=== PATIENT | female | born 2005 | race Caucasian/White ===

== ENCOUNTER 2024-06-10 13:18 | Emergency (ER) | payer MEDICAID ==
[2024-06-10 13:37] VITALS: TEMP 98.4; O2SAT 100
[2024-06-10 13:44] LABS: HCG URINE TEST NEGATIVE (NEGATIVE)
--- NOTE | 2024-06-10 13:50 | ERPHSYRPT ---
- History of Present Illness Time Seen by Provider: 06/10/24 13:47 Source: patient Exam Limitations: no limitations Patient Subjective Stated Complaint: C/O burning with urinations X 4 days with some left sided abdominal pain that started around 0400 today. Triage Nursing Assessment: Patient ambulated back to ER without difficulties. She is alert and oriented. No SOB. Skin tone normal. DERRICK MIKE. Physician History: 18-year-old female history of UTI presents to our emergency department with similar symptoms. Patient complains of dysuria. Symptoms have been ongoing for approximately 4 days. Symptoms have gotten progressively worse. Patient now complains of left sided flank/abdominal pain. No active pain at this time. Patient declined pain medication. No trauma no fever. No nausea vomiting or diaphoresis. Symptoms are mild to moderate in intensity. No specific worsening improving factors. Patient otherwise feels well. Mother at bedside. They voiced no other complaints or concerns at this time. Portions of this note were created with voice recognition technology. There may be grammatical, spelling, punctuation or sound alike errors Timing/Duration: day(s) Severity: moderate (4 days) Modifying Factors: Improves With: nothing Associated Symptoms: denies symptoms Allergies/Adverse Reactions: No Known Drug Allergies Allergy (Verified 06/10/24 13:29) Hx Tetanus, Diphtheria Vaccination/Date Given: Yes Immunizations Up to Date: Yes Travel Risk - International Travel Have you traveled outside of the country in past 3 weeks: No - Emerging Infectious Disease Are you exhibiting symptoms associated with any current EIDs: Yes Symptoms: Abdominal Pain - Review of Systems Constitutional: No Symptoms, No Fever, No Chills Eyes: No Symptoms Ears, Nose, & Throat: No Symptoms Respiratory: No Symptoms, No Cough, No Dyspnea Cardiac: No Symptoms, No Chest Pain, No Edema, No Syncope Abdominal/Gastrointestinal: No Symptoms, No Abdominal Pain, No Nausea, No Vomiting, No Diarrhea Genitourinary Symptoms: No Symptoms, No Dysuria Musculoskeletal: No Symptoms, No Back Pain, No Neck Pain Skin: No Symptoms, No Rash Neurological: No Symptoms, No Dizziness, No Focal Weakness, No Sensory Changes Psychological: No Symptoms Endocrine: No Symptoms Hematologic/Lymphatic: No Symptoms Immunological/Allergic: No Symptoms All Other Systems: Reviewed and Negative - Past Medical History Pertinent Past Medical History: No - Past Surgical History Past Surgical History: Yes Other Surgical History: leg abcess - Female History Hx Last Menstrual Period: 05/27/24 Hx Now: No (birthcontrol arm implant) - Social History Smoking Status: Never smoker Exposure to second hand smoke: No Drug Use: none - Social Determinants of Health Will the patient participate in the screening: Yes Do you worry about a steady place to live?: No Do you have any problems with any of the following?: No known problems In the past 12 months,have you had to go without utilities?: No Transportation Issues: No Has anyone in your support network made you feel unsafe?: No Have you or anyone in your house had to go without enough: No - Nursing Vital Signs Nursing Vital Signs: Initial Vital Signs Temperature 98.4 F 06/10/24 13:18 Pulse Rate 90 06/10/24 13:18 Respiratory Rate 23 06/10/24 13:18 Blood Pressure 128/66 06/10/24 13:18 O2 Sat by Pulse Oximetry 100 06/10/24 13:18 Pain Scale Pain Intensity 3 - Physical Exam General Appearance: no apparent distress, alert Eye Exam: PERRL/EOMI, eyes nml inspection Ears, Nose, Throat Exam: normal ENT inspection, moist mucous membranes Neck Exam: normal inspection, non-tender, supple, full range of motion Respiratory Exam: normal breath sounds, lungs clear, airway intact, No respiratory distress Cardiovascular Exam: regular rate/rhythm, normal heart sounds, normal peripheral pulses Gastrointestinal/Abdomen Exam: soft, normal bowel sounds, No tenderness, No mass Back Exam: normal inspection, normal range of motion, No CVA tenderness, No vertebral tenderness Extremity Exam: normal inspection, normal range of motion, pelvis stable Neurologic Exam: alert, oriented x 3, cooperative, normal mood/affect, sensation nml, No motor deficits Skin Exam: normal color, warm, dry, No rash Lymphatic Exam: No adenopathy SpO2 Interpretation: normal SpO2: 100 O2 Delivery: Room Air - Course Nursing assessment & vital signs reviewed: Yes - CT Exams Abdomen/Pelvis CT Interpretation: Tele-radiologist Report (Fecal stasis, fecal rectal impaction) Ordered Tests: Active Orders 24 hr Category Date Time Status ABDOMEN AND PELVIS W/0 CONTRAS [CT] Stat Exams 06/10/24 13:36 Completed CULTURE,URINE Stat Lab 06/10/24 13:22 Received HCG QUALITATIVE, URINE Stat Lab 06/10/24 13:40 Completed UA W/RFX UR CULTURE Stat Lab 06/10/24 13:22 Completed Medication Summary Discontinued Medications Generic Name Dose Route Start Last Admin Trade Name Heidi PRN Reason Stop Dose Admin Ceftriaxone Sodium 1,000 mg 06/10/24 14:48 06/10/24 14:53 Ceftriaxone Sodium 1000 Mg Inj Vial IM 06/10/24 14:49 1,000 mg STAT ONE Administration Ceftriaxone Sodium Confirm 06/10/24 14:52 Ceftriaxone Sodium 1000 Mg Inj Vial Administered 06/10/24 14:53 Dose 1,000 mg .ROUTE .STK-MED ONE Lidocaine HCl Confirm 06/10/24 14:52 Lidocaine Hcl 1% 20 Ml Mdv 20 Ml Ml Administered 06/10/24 14:53 Dose 3 ml .ROUTE .STK-MED ONE Lab/Rad Data: Laboratory Results 06/10/24 06/10/24 Range/Units 13:40 13:22 Urine Color Yellow (Yellow) Urine Appearance Clear (Clear) Urine pH 6.5 (4.6-8.0) Ur Specific Mcdermott <=1.005 (1.005-1.030) Urine Protein Negative (Negative) Urine Glucose (UA) Negative (Negative) mg/dL Urine Ketones Negative (Negative) Urine Blood Small A (Negative) Urine Nitrite Negative (Negative) Urine Bilirubin Negative (Negative) Urine Urobilinogen 0.2 (0.2) mg/dL Ur Leukocyte Esterase Large A (Negative) U Hyaline Cast (Auto) NONE SEEN (0-2) /LPF Urine Microscopic RBC 0-2 (0-5) /HPF Urine Microscopic WBC 51-100 A (0-5) /HPF Ur Epithelial Cells None Seen (None Seen) /HPF Urine Bacteria None Seen (None Seen) /HPF Urine Culture Reflexed YES (NO) Urine HCG, Qual NEGATIVE (NEGATIVE) - Progress Progress: improved Progress Note: 18-year-old female presents to emergency department for evaluation of dysuria and abdominal pain. Physical exam reveals some tenderness left mid abdomen flank area. CT abdomen pelvis shows fecal stasis and mild fecal rectal impaction. Urinalysis reveals urinary tract infection. Patient received IM Rocephin and a prescription for Keflex. No indication for further workup. No active pain. Patient declined pain medication. Patient agrees to follow-up with her primary care doctor within 48 hours for reevaluation. She voices no other complaints or concerns at this time. Portions of this note were created with voice recognition technology. There may be grammatical, spelling, punctuation or sound alike errors Complexity of problem addressed is moderate acute complicated. No critical care time. Complexity of data reviewed and analyzed is moderate. Test ordered test reviewed results analyzed and correlated clinically with history and physical exam. Risk of complication and or risk of morbidity/mortality of patient management is moderate. A prescription for Keflex forwarded to patient's pharmacy. Vital stable. Time spent to discharge patient is approximately 20 minutes. Plan of care established for shared decision making. No social determinants of health present to impede follow-up. Portions of this note were created with voice recognition technology. There may be grammatical, spelling, punctuation or sound alike errors 06/10/24 15:01 Counseled pt/family regarding: lab results, diagnosis, need for follow-up, rad results - Departure Departure Disposition: Home Clinical Impression: Fecal stasis, Fecal impaction in rectum, Urinary tract infection Condition: Stable Critical Care Time: No Referrals: DOCTOR,NO FAMILY [Primary Care Provider] - Follow up/PCP as directed PAULINA DASILVA DO [ACTIVE STAFF] - Follow up/PCP as directed Additional Instructions: Discharge/Care Plan ANTIONE VOGEL was seen on 06/10/24 in the Emergency Room. The patient was counseled regarding Diagnosis,Lab results, Imaging studies, need for follow up and when to return to the Emergency Room. Prescriptions given: Discharge Note I have spoken with the patient and/or caregivers. I have explained the patient's condition, diagnosis and treatment plan based on the information available to me at this time. I have answered the patient's and/or caregiver's questions and addressed any concerns. The patient and/or caregivers have as good understanding of the patient's diagnosis, condition and treatment plan as can be expected at this point. The vital signs have been stable. The patient's condition is stable and appropriate for discharge from the emergency department. The patient will pursue further outpatient evaluation with the primary care physician or other designated or consulting physician as outlined in the discharge instructions. The patient and/or caregivers are agreeable to this plan of care and follow-up instructions have been explained in detail. The patient and/or caregivers have received these instruction. The patient/and or caregivers are aware that any significant change in condition or worsening of symptoms should prompt an immediate return to this or the closest emergency department or call 911. Prescriptions: Cephalexin Mh 500 mg [Keflex 500 mg] 500 mg PO TID 7 Days #21 cap
[2024-06-10 14:03] LABS: Appearance Clear (Clear); Bacteria None Seen /HPF (None Seen); Bilirubin Negative (Negative); Blood Small (Negative); Epithelial Cells None Seen /HPF (None Seen); Glucose, Urine Negative (Negative); Hyaline Casts NONE SEEN /LPF (0-2); Ketones Negative (Negative); Leukocyte Esterase Large (Negative); Nitrite Negative (Negative); Ph 6.5 (4.6-8.0); Protein,Urine Dip Negative (Negative); RBC 0-2 /HPF (0-5); Specific Gravity <=1.005 (1.005-1.030); Urobilinogen 0.2 mg/dL (0.2); WBC 51-100 /HPF (0-5)
[2024-06-10] MEDS ORDERED: XYLOCAINE 1% HCL 20 ML MDV ONE (14:52)
[2024-06-10] MEDS ORDERED: Rocephin 1000 MG INJ ONE (14:52)
[2024-06-10] MEDS: Rocephin 1000 MG INJ IM ONE (14:53)
--- NOTE | 2024-06-10 14:56 | XRAY ---
Indication: Pain. UTI. Multiple contiguous axial images obtained through the abdomen and pelvis without contrast. Comparison: None Lung bases clear. Heart not enlarged. Stomach distended with food. Noncontrasted stomach and bowel loops appear nonobstructed with normal appendix. Mild diffuse scattered colonic fecal debris with mild rectal fecal impaction. No free fluid/air. Remaining liver, gallbladder, pancreas, spleen, adrenal glands, kidneys, ureters, bladder, uterus, and aorta are unremarkable for noncontrast exam. Osseous structures intact. No ventral or inguinal hernias. Impression: Mild diffuse fecal stasis with rectal fecal impaction. Remaining CT abdomen/pelvis without contrast exam is normal.
[2024-06-10 15:04] VITALS: BP 126/63; PULSE 73; RESP 20
== END 2024-06-10 15:08 | disposition home or self-care (01) ==
LOC: ED 13:18
DX: N39.0 Urinary tract infection, site not specified (principal); K56.41 Fecal impaction; K59.89 Other specified functional intestinal disorders; R30.0 Dysuria; R10.9 Unspecified abdominal pain; Z79.899 Other long term (current) drug therapy
CPT/HCPCS: 74176; 81001; 81025; 87077; 87086; 87186; 96372; 99283; J0696